=== PATIENT | female | born 1985 | race Caucasian/White ===

== ENCOUNTER 2020-02-29 13:11 | Emergency (ER) | payer OTHER, MEDICAID ==
[~2020-02-29] VITALS: Ht 165.1 cm; Wt 80.7 kg
[2020-02-29 13:15] VITALS: BP_SYST 121
--- NOTE | 2020-02-29 13:20 | NUR ---
Patient to ER bed 07 to gown for evaluation. Side rails up. Report given to .
--- NOTE | 2020-02-29 13:22 | NUR ---
Patient biba in the ED for bradycardia today, denied any lightheadedness or dizziness. Denied any chest pain or shortness of breath. Denied any fevers, chills, nausea or vomiting. Patient is alert and oriented x2, respirations even and unlabored, speaking in full sentences, and ambulating with a steady gait. VSS, pain level 0/10. Sitter at bedside. Informed of the approximate wait time. Instructed to notify ED staff for any changes in condition or worsening of symptoms while waiting to be seen by an ED provider. Patient verbalized understanding.
--- NOTE | 2020-02-29 13:25 | NUR ---
REMBERTO Gong at bedside examining patient.
--- NOTE | 2020-02-29 13:27 | NUR ---
ECG done at bedside as ordered by Dr. Gong. Patient tolerated the procedure well. ER Physician given copy of EKG for review.
--- NOTE | 2020-02-29 13:28 | NUR ---
Patient ambulated to the bathroom with a steady gait.
--- NOTE | 2020-02-29 13:35 | NUR ---
order entry technician at bedside collecting blood specimen as ordered by Dr. Gong. Patient tolerated the procedure well.
[2020-02-29 13:50] LABS: BILIRUBIN,URINE NEGATIVE (NEGATIVE); BLOOD, URINE NEGATIVE (NEGATIVE); CLARITY/URINE CLEAR (CLEAR); COLOR,URINE YELLOW (YELLOW); GLUCOSE,URINE NEGATIVE (NEGATIVE); KETONES,URINE NEGATIVE (NEGATIVE); LEUKOCYTE ESTERASE ,URINE NEGATIVE (NEGATIVE); NITRITE, URINE NEGATIVE (NEGATIVE); PROTEIN URINE NEGATIVE (NEGATIVE); UROBILINOGEN,URINE 0.2 (0.2-1.0)
[2020-02-29 13:59] LABS: BARBITURATE, URINE NEGATIVE (NEG <=200); BENZODIAZEPINE, URINE NEGATIVE (NEG <=150); CANNABINOID, URINE NEGATIVE (NEG <=50); COCAINE, URINE NEGATIVE (NEG <=150); METHAMPHETAMINES SCREEN,URINE NEGATIVE (NEG <=500); OPIATE, URINE NEGATIVE (NEG <=100); PHENCYCLIDINE SCREEN,URINE NEGATIVE (NEG <=25); UR TRICYCLIC ANTIDEPRESSANTS NEGATIVE (NEG <=300); URINE AMPHETAMINE NEGATIVE (NEG <=500); URINE METHADONE NEGATIVE (NEG <=200); URINE OXYCODONE SCREEN NEGATIVE (NEG <=100); URINE PROPOXYPHENE SCREEN NEGATIVE (NEG <=300)
[2020-02-29] MEDS ORDERED: ONDANSETRON 4 MG ODT TAB PO ONE (14:00)
--- NOTE | 2020-02-29 14:13 | NUR ---
Patient moved to Bed 03. Sitter at bedside.
--- NOTE | 2020-02-29 14:24 | NUR ---
Administered Zofran PO as ordered by Dr. Gong. Patient tolerated the medications well. See eMAR for details.
[2020-02-29 14:35] LABS: BASOPHILS % (AUTO) 0.6 % (0.0-2.0); EOSINOPHILS # (AUTO) 0.1 K/uL (0.0-0.4); EOSINOPHILS % (AUTO) 1.3 % (0.0-4.0); HEMATOCRIT 42.8 % (36-48); HEMOGLOBIN 13.9 g/dL (12.0-16.0); LYMPHOCYTES # (AUTO) 1.2 K/uL (1.0-5.5); MEAN CORPUSCULAR HEMOGLOBIN 26 pg (27-31); MEAN CORPUSCULAR HGB CONC 32 % (32-36); MEAN CORPUSCULAR VOLUME 81 fL (79.0-98.0); MONOCYTES # (AUTO) 0.7 K/uL (0.0-1.0); NEUTROPHILS # (AUTO) 3.6 K/uL (1.8-7.7); NEUTROPHILS % (AUTO) 64.1 % (40.0-70.0); PLATELET COUNT (AUTO) 237 K/uL (130-430); RED BLOOD CELL COUNT(AUTO) 5.26 MIL/uL (4.2-6.2); RED CELL DISTRIBUTION WIDTH 14.8 % (9.0-15.0); WHITE BLOOD COUNT (AUTO) 5.6 K/uL (4.8-10.8)
[2020-02-29 14:47] LABS: ANION GAP 9 (5-15); CALCIUM 9.5 mg/dL (8.4-11.0); CHLORIDE 100 mmol/L (98-107); CREATININE 0.97 mg/dL (0.55-1.30); GLUCOSE 90 mg/dL (70-99); POTASSIUM 4.7 mmol/L (3.5-5.1); SODIUM SERUM 136 mmol/L (136-145); UREA NITROGEN, BLOOD 10 mg/dL (8-21)
[2020-02-29 14:53] LABS: GFR AFRICAN AMERICAN 84 mL/min (>90)
--- NOTE | 2020-02-29 14:55 | NUR ---
Patient ambulated to the bathroom with a steady gait.
[2020-02-29 15:03] LABS: ALANINE AMINOTRANSFERASE 34 U/L (12-78); ALBUMIN 3.9 g/dL (3.4-4.8); ASPARTATE AMINOTRANSFERASE 25 U/L (10-37); FREE T4 (FREE THYROXINE) 1.8 ng/dl (0.8-1.5); TOTAL BILIRUBIN 0.3 mg/dL (0.0-1.0)
[2020-02-29 15:08] LABS: ACETAMINOPHEN < 1 ug/mL (1-30); ALCOHOL, BLOOD < 3 mg/dL (<10)
--- NOTE | 2020-02-29 16:23 | NUR ---
Gave report to [facility].
--- NOTE | 2020-02-29 17:00 | NUR ---
Patient given written and verbal discharge instructions and verbalizes understanding. ER MD discussed with patient the results and treatment provided. Patient in stable condition. ID arm band removed. No Rx given. Patient educated on pain management and to follow up with PMD. Pain Scale 0/10. Opportunity for questions provided and answered. Medication side effect fact sheet provided.
[2020-02-29 17:01] VITALS: BP_SYST 121
== END 2020-02-29 17:00 | disposition home or self-care (01) ==
LOC: SED 13:11
DX: R00.1 Bradycardia, unspecified (principal); E05.80 Other thyrotoxicosis without thyrotoxic crisis or storm; K21.9 Gastro-esophageal reflux disease without esophagitis; F41.9 Anxiety disorder, unspecified; F20.9 Schizophrenia, unspecified
CPT/HCPCS: 36415; 80053; 80307; 81003; 84439; 84443; 85025; 93005; 99284; G0480; G0481; G0482; 99285